=== PATIENT | male | born 1950 | race Caucasian/White ===

== ENCOUNTER → 2021-01-09 18:00 | Outpatient (CLI) | payer MEDICARE, SELFPAY ==
[2021-01-09 18:59] LABS: Basophils # 0.1 K/mm3 (0-0.2); Basophils % 0.6 % (0.1-2.0); Eosinophils # 0.2 K/mm3 (0.0-0.4); Eosinophils % 2.4 % (0.1-12.0); Hematocrit 46.6 % (42.0-52.0); Hemoglobin 15.1 g/dL (14.1-18.0); Lymphocytes # 3.8 K/mm3 (0.7-4.5); Lymphocytes % 37.7 % (10-50); Mean Corpuscular HGB Conc 32.4 g/dL (31.8-35.4); Mean Corpuscular Hemoglobin 29.5 pg (27.0-31.2); Mean Corpuscular Volume 90.9 fl (80-94); Mean Platelet Volume 9.6 fl (7.4-10.4); Monocytes # 0.5 K/mm3 (0.1-1.0); Neutrophils # 5.5 K/mm3 (1.8-7.8); Neutrophils % 54.4 % (37.0-80.0); Platelet Count 269 K/mm3 (142-424); Red Blood Count 5.13 M/mm3 (4.60-6.20); White Blood Count 10.2 K/mm3 (4.8-10.8)
[2021-01-09 19:07] LABS: Alanine Aminotransferase 20 U/L (12-78); Albumin Level 4.3 g/dl (3.5-5.0); Albumin/Globulin Ratio 1.6 (1.1-1.8); Alkaline Phosphatase 67 U/L (38-126); Anion Gap 11.3 mEq/L (5-15); Aspartate Amino Transferase 33 U/L (17-59); Bilirubin,Total 0.8 mg/dl (0.2-1.3); Blood Urea Nitrogen 15 mg/dl (9-20); Calcium 9.5 mg/dl (8.4-10.2); Carbon Dioxide 28 mmol/L (22.0-30.0); Chloride 104 mmol/L (98-107); Chol/HDL Ratio 4.6 (1-3.5); Cholesterol 227 mg/dl (140-200); Estimated Glomerular Filt Rate 74 ml/min (>60); GFR (African American) 89 ML/MIN (>60); Globulin 2.7 g/dL (1.3-3.2); Glucose 94 mg/dl (74-100); HDL Cholesterol 49 mg/dl (40-60); Potassium 4.3 mmoL/L (3.5-5.1); Sodium 139 mmol/L (136-145); Triglycerides 110 mg/dl (30-150); VLDL Cholesterol 22 mg/dL (0-40)
[2021-01-09 19:19] LABS: Direct LDL Cholesterol 149.14 mg/dL (100-129)
[2021-01-09 19:40] LABS: Prostate Specific Ag Screen 4.8 ng/ml (0.0-4.0)
== END ==
PROVIDERS: Visit Provider Family Medicine
DX: I10 Essential (primary) hypertension (principal); S34.109A Unspecified injury to unspecified level of lumbar spinal cord, initial encounter; Z12.5 Encounter for screening for malignant neoplasm of prostate; Z79.899 Other long term (current) drug therapy
CPT/HCPCS: 80053; 80061; 85025; G0103

== ENCOUNTER → 2022-12-10 23:27 | Outpatient (CLI) | payer MEDICARE, SELFPAY ==
[2022-12-10 18:57] LABS: Basophils # 0.1 K/mm3 (0-0.2); Basophils % 0.5 % (0.1-2.0); Eosinophils # 0.3 K/mm3 (0.0-0.4); Eosinophils % 2.9 % (0.1-12.0); Hemoglobin 15.1 g/dL (14.1-18.0); Lymphocytes # 5.2 K/mm3 (0.7-4.5); Lymphocytes % 46.3 % (10-50); Mean Corpuscular HGB Conc 34.3 g/dL (31.8-35.4); Mean Corpuscular Hemoglobin 30.8 pg (27.0-31.2); Mean Corpuscular Volume 89.7 fl (80-94); Mean Platelet Volume 10.5 fl (7.4-10.4); Monocytes # 0.7 K/mm3 (0.1-1.0); Monocytes % 6.5 % (1.7-9.3); Neutrophils # 4.9 K/mm3 (1.8-7.8); Neutrophils % 43.8 % (37.0-80.0); Platelet Count 228 K/mm3 (142-424); Red Blood Count 4.91 M/mm3 (4.60-6.20); Red Cell Distribution Width 13.5 % (11.5-17.5); White Blood Count 11.2 K/mm3 (4.8-10.8)
[2022-12-10 19:22] LABS: Alanine Aminotransferase 23 U/L (12-78); Albumin Level 4.2 g/dl (3.5-5.0); Albumin/Globulin Ratio 1.4 (1.1-1.8); Alkaline Phosphatase 83 U/L (38-126); Anion Gap 11.3 mEq/L (5-15); Aspartate Amino Transferase 32 U/L (17-59); Bilirubin,Total 0.9 mg/dl (0.2-1.3); Blood Urea Nitrogen 13 mg/dl (9-20); Calcium 9.1 mg/dl (8.4-10.2); Carbon Dioxide 29 mmol/L (22.0-30.0); Chloride 104 mmol/L (98-107); Chol/HDL Ratio 3.6 (1-3.5); Cholesterol 132 mg/dl (140-200); Estimated Glomerular Filt Rate 73 ml/min (>60); GFR (African American) 89 ML/MIN (>60); Globulin 2.9 g/dL (1.3-3.2); Glucose 99 mg/dl (74-100); HDL Cholesterol 37 mg/dl (40-60); Potassium 4.3 mmoL/L (3.5-5.1); Sodium 140 mmol/L (136-145); Total Protein,Serum 7.1 g/dl (6.3-8.2); Triglycerides 126 mg/dl (30-150); VLDL Cholesterol 25 mg/dL (0-40)
[2022-12-10 19:33] LABS: Direct LDL Cholesterol 73.43 mg/dL (100-129)
== END ==
PROVIDERS: PCP Family Medicine; Visit Provider Family Medicine
DX: G89.29 Other chronic pain (principal); M54.41 Lumbago with sciatica, right side; I10 Essential (primary) hypertension
CPT/HCPCS: 80053; 80061; 85025

== ENCOUNTER 2023-03-30 19:27 | Outpatient (CLI) | payer MEDICARE, SELFPAY ==
[2023-03-30 19:30] LABS: Vitamin B12 906 pg/mL (239-931)
== END 2023-03-30 23:59 ==
LOC: LAB.DROPOF 19:28
PROVIDERS: PCP Family Medicine; Visit Provider Family Medicine
DX: G62.9 Polyneuropathy, unspecified (principal); D51.9 Vitamin B12 deficiency anemia, unspecified
CPT/HCPCS: 82607

== ENCOUNTER 2023-07-21 09:43 | Outpatient (CLI) | payer MEDICARE, SELFPAY ==
[2023-07-21 19:01] LABS: Prostate Specific Ag Screen 0.3 ng/ml (0.0-4.0)
== END 2023-07-21 23:59 | disposition home or self-care (01) ==
LOC: LAB.DROPOF 07-22 09:45
PROVIDERS: PCP Family Medicine; Visit Provider Family Medicine
DX: Z12.5 Encounter for screening for malignant neoplasm of prostate (principal)
CPT/HCPCS: G0103

== ENCOUNTER 2024-01-13 15:55 | Outpatient (CLI) | payer MEDICARE, SELFPAY ==
[2024-01-13 18:49] LABS: Alanine Aminotransferase 26 U/L (12-78); Albumin Level 4.5 g/dl (3.5-5.0); Alkaline Phosphatase 75 U/L (38-126); Aspartate Amino Transferase 36 U/L (17-59); Bilirubin,Total 0.9 mg/dl (0.2-1.3); Blood Urea Nitrogen 16 mg/dl (9-20); Calcium 9.4 mg/dl (8.4-10.2); Carbon Dioxide 30 mmol/L (22.0-30.0); Chloride 104 mmol/L (98-107); Chol/HDL Ratio 3.2 (1-3.5); Cholesterol 144 mg/dl (140-200); Estimated Glomerular Filt Rate 73 ml/min (>60); GFR (African American) 89 ML/MIN (>60); Globulin 2.3 g/dL (1.3-3.2); Glucose 75 mg/dl (74-100); HDL Cholesterol 45 mg/dl (40-60); Magnesium 2.2 mg/dl (1.6-2.3); Phosphorous 3.4 mg/dl (2.5-4.5); Sodium 142 mmol/L (136-145); Total Protein,Serum 6.8 g/dl (6.3-8.2); Triglycerides 101 mg/dl (30-150); VLDL Cholesterol 20 mg/dL (0-40)
[2024-01-13 18:50] LABS: Basophils # 0.1 K/mm3 (0-0.2); Basophils % 0.5 % (0.1-2.0); Eosinophils # 0.2 K/mm3 (0.0-0.4); Eosinophils % 1.5 % (0.1-12.0); Hematocrit 44.7 % (42.0-52.0); Hemoglobin 15.3 g/dL (14.1-18.0); Lymphocytes # 6.2 K/mm3 (0.7-4.5); Lymphocytes % 52.1 % (10-50); Mean Corpuscular HGB Conc 34.1 g/dL (31.8-35.4); Mean Corpuscular Hemoglobin 30.3 pg (27.0-31.2); Mean Corpuscular Volume 88.8 fl (80-94); Mean Platelet Volume 9.7 fl (7.4-10.4); Monocytes # 0.7 K/mm3 (0.1-1.0); Monocytes % 5.5 % (1.7-9.3); Neutrophils # 4.8 K/mm3 (1.8-7.8); Neutrophils % 40.3 % (37.0-80.0); Platelet Count 237 K/mm3 (142-424); Red Blood Count 5.04 M/mm3 (4.60-6.20); White Blood Count 11.9 K/mm3 (4.8-10.8)
[2024-01-13 18:53] LABS: MANUAL DIFFERENTIAL MANUAL DIFFERENTIAL (MANUAL DIFF)
[2024-01-13 19:01] LABS: Direct LDL Cholesterol 84.68 mg/dL (100-129)
[2024-01-13 19:05] LABS: T4 (Thyroxine) 8.7 ug/dl (5.53-11.0)
[2024-01-13 19:06] LABS: 25-OH Vitamin D, Total 48.4 ng/mL (30-100)
[2024-01-13 19:19] LABS: Thyroid Stimulating Hormone 1.75 uIU/mL (0.465-4.68)
[2024-01-13 20:12] LABS: Eosinophils % 1 % (0-3); Lymphocytes % 55 % (10-50); Monocytes % 8 % (2-9); Neutrophils % 36 % (42-76); Platelet Estimate Normal; RBC Morphology Normal; Total Cells Counted 100
== END 2024-01-13 23:59 | disposition home or self-care (01) ==
LOC: LAB.DROPOF 01-16 10:33
PROVIDERS: PCP Nurse Practitioner Family; Visit Provider Nurse Practitioner Family
DX: M79.10 Myalgia, unspecified site (principal); E55.9 Vitamin D deficiency, unspecified; I10 Essential (primary) hypertension; E78.5 Hyperlipidemia, unspecified
CPT/HCPCS: 80053; 80061; 82306; 83735; 84100; 84436; 84443; 85007; 85025; 85027

== ENCOUNTER 2024-09-27 11:00 | Outpatient (CLI) | payer MEDICARE, SELFPAY ==
[2024-09-27 14:57] LABS: Hematocrit 45.4 % (42.0-52.0); Hemoglobin 15.1 g/dL (14.1-18.0); Immature Granulocytes % 0.3 %; Mean Corpuscular HGB Conc 33.3 g/dL (31.8-35.4); Mean Corpuscular Hemoglobin 30.0 pg (27.0-31.2); Mean Corpuscular Volume 90.1 fl (80-94); Nucleated Red Blood Cells % 0 %; Platelet Count 260 K/mm3 (142-424); Red Blood Count 5.04 M/mm3 (4.60-6.20); Red Cell Distribution Width-SD 39.8 fL; White Blood Count 10.6 K/mm3 (4.8-10.8)
[2024-09-27 15:06] LABS: Alanine Aminotransferase 22 U/L (12-78); Albumin Level 4.2 g/dl (3.5-5.0); Albumin/Globulin Ratio 1.8 (1.1-1.8); Alkaline Phosphatase 79 U/L (38-126); Anion Gap 8.7 mEq/L (5-15); Aspartate Amino Transferase 32 U/L (17-59); Bilirubin,Total 1.0 mg/dl (0.2-1.3); Blood Urea Nitrogen 30 mg/dl (9-20); Calcium 9.7 mg/dl (8.4-10.2); Carbon Dioxide 34 mmol/L (22.0-30.0); Chloride 102 mmol/L (98-107); Cholesterol 162 mg/dl (140-200); Creatinine,Serum 1.60 mg/dl (0.66-1.25); Estimated Glomerular Filt Rate 42 ml/min (>60); GFR (African American) 51 ML/MIN (>60); Globulin 2.3 g/dL (1.3-3.2); Glucose 99 mg/dl (74-100); HDL Cholesterol 37 mg/dl (40-60); Potassium 3.7 mmoL/L (3.5-5.1); Sodium 141 mmol/L (136-145); Total Protein,Serum 6.5 g/dl (6.3-8.2); Triglycerides 160 mg/dl (30-150)
[2024-09-27 15:54] LABS: Hepatitis C Ab Qual. W/ RFX NEGATIVE (Negative)
[2024-09-27 16:28] LABS: RBC Morphology Normal; Total Cells Counted 100
[2024-09-28 07:16] LABS: Hepatitis B Surface Antigen Negative (Negative)
--- OUTSIDE RECORDS SUMMARY | 2024-09-28 13:49 | XMS_ITS | Clinical Summary ---
Author Organization [facility] Address [address] ([place], [place]) [address] [place] [address] Phone Care Team Providers Care Graphics Artist Name Role Phone Kaylie HENSON, Aubrey Unavailable [phone] Conditions or Problems Problem Name Problem Code Onset Date Status Entry Date Provider Comment Standard Description Annotate NECK PAIN 56320316 (SNOMED CT) Active Joycelyn Raza MA Neck pain OVERWEIGHT 865902061 (SNOMED CT) Active Joycelyn Raza MA Overweight LUMBAR DISC HERNIATION 56261944 (SNOMED CT) Active Irene Salvador MD Displacement of lumbar intervertebral disc without myelopathy Medications Medication Instructions Start Date Stop Date Generic Name [facility] Provider CYCLOBENZAPRINE HCL 10 MG TABS 1 PO TID as needed for spasms CYCLOBENZAPRINE HCL 30971454491 Aubrey Lott NP ZANAFLEX 2 MG ORAL CAPSULE 1 PO TID as needed for spams TIZANIDINE HCL 42564484985 Aubrey Lott NP LISINOPRIL TABLET Non-Simpson LISINOPRIL TABS 44424344914 Joycelyn Raza MA EQL FISH OIL 1000 MG CAPS 1 daily Non-Simpson 2/11 OMEGA-3 FATTY ACIDS 52989316040 Joycelyn Raza MA ADVIL 200 MG TABS prn Non-Simpson 2/11 IBUPROFEN 70954745419 Joycelyn Raza MA ADVIL 200 MG TABS prn Non-Simpson 0 2/11 IBUPROFEN 52796166696 Irene Salvador MD EQL FISH OIL 1000 MG CAPS 1 daily Non-Simpson 2/11 OMEGA-3 FATTY ACIDS 09804400986 Irene Salvador MD AMLODIPINE BESYLATE 10 MG TABS 1 daily Non-Mas AMLODIPINE BESYLATE [id number] Irene Salvador MD Medications Administered No information available. Allergies, Adverse Reactions, Alerts Observed no known allergies at Results No information available. Plan of Care Type Date Detail Pending order MRI Cervical wit hout contrast Pending order MRI Cervical wit hout contrast Pending order MANJIT -- x 1 injec tion then follow back to Ordering MD Procedures Code Procedure Name Date Entry Date [id number] Flu Shot Previously Received [id number] Pneumonia Vaccine Previously Received 20/04/24 [id number] Medications Documented [id number] Flu Shot Previously Received [id number] Pneumonia Vaccine Previously Received 20/04/10 [id number] Medications Documented [id number] Flu Shot Previously Received G8427 Medication Reconcili ation Completed CPT-G8427 G8730 Pain Assessment posi tive with follow up plan G8417 BMI above normal, f/u plan documented 201 08/09/29 1036F No tobacco use currently 201 08/09/29 [id number] No pneumococcal vaccine received; no reas on G8483 No flu shot received; allergy etc. 1123F ACP/POA documented 0 [id number] Pneumonia Vaccine Previously Received 12/02/30 [id number] Medications Documented [id number] Medications Documented 1123F ACP/POA documented 8 G8483 No flu shot received; allergy etc. 03/27 [id number] No pneumococcal vaccine received; no reas on 1036F No tobacco use currently 201 08/09/27 G8417 BMI above normal, f/u plan documented 201 08/09/27 G8730 Pain Assessment posi tive with follow up plan G8427 Medication Reconcili ation Completed CPT-G8427 Vital Signs Date Name Value Unit Description BMI (Body Mass Index) 30.41 kg/m2 Bod y Mass Index (Ratio) Body Temperature 97.5 [degF] temperat ure E&M Height 68 [in_us] height E&M Weight Measured 200 [lb_av] weight E& M Weight Measured 200 [lb_av] weight E& M BP Diastolic 84 mm[Hg] blood pressu re, diastolic BP Systolic 154 mm[Hg] blood pressur e, systolic Heart Rate 65 /min pulse rate Immunizations No information available. Advance Directives No information available.
--- OUTSIDE RECORDS SUMMARY | 2024-09-28 13:50 | XMS_ITS | Encounter Summary ---
Author Organization [place] [address] Care Team Providers Care School Secretary Name Role Phone Kendall Griffiths MD Primary Care Provider Unav ailable Encounter Details Date Type Department Care Team (Late st Contact Info) Description 01/15/2022 Lab Requisition [facility] [place] [address] Melissa Wheeler PA-C [address] [place] [address] [address] [place] [address] Calculus of kidney Social History Tobacco Use Types Packs/Day Years Used Date Smoking Tobacco: Never Smokeless Tobacco: Never Alcohol Use Standard Drinks/Week Comments No 0 (1 standard drink = 0.6 oz pur e alcohol) Sex and Gender Information Value Date Recorded Sex Assigned at Not on file Legal Sex Male 9:53 PM EDT Gender Identity Not on file Sexual Orientation Not on file COVID-19 Exposure Response Date Recorded In the last 10 days, have yo u been in contact with someone who was confirmed or suspected to have Coronavirus/COVID-19? No / Unsure 12/29/2021 6:41 AM EDT documented as of this encounter Plan of Treatment Not on file documented as of this encounter Procedures Procedure Name Priority Date/Time Associated Diagnosis Comments CALCULI (STONE) ANALYSIS - REF LAB Routine 01/15/2022 12:45 PM EST Calculus of kidney documented in this encounter Results * CALCULI (STONE) ANALYSIS - REF LAB (01/15/2022 12:45 PM EST) Calculi Comp See Note 01/21/2022 10:53 AM EST [facility] Comment: Calculi composed primarily of: 20% calcium oxalate monohydrate, 10% calcium oxalate dihydrate, and 70% calcium phosphate (hydroxy- and carbonate- apatite). INTERPRETIVE INFORMATION: Calculi (Stone) analysis Calculi are the products of physiological processes that yield crystalline compounds in a matrix of biological compounds and blood. Matrix components are not reported. The clinically significant crystalline components identified in calculi specimens are reported. Gross description may not be consistent with composition determined by FTIR analysis. Performed By: [facility] [address] [place] [address] Soliciting Freight Agent: Michael Santana MD, PhD Calculi Mass 145 mg 01/21/2022 10:53 AM EST [facility] Calculi Desc See Note 01/21/2022 10:53 AM EST [facility] Comment: Specimen consists of numerous orange and fong calculi fragments. The total weight is 145 mg. Calculus URINE SPECIMEN COLLECTION / Unknown 01/15/2022 12:45 PM EST 01/15/2022 8:53 PM EST us Melissa Wheeler PA-C MICROBIOLOGY - GENERAL O RDERABLES Final Result [facility] [address] [place] [address] documented in this encounter Visit Diagnoses Diagnosis Calculus of kidney documented in this encounter Care Teams School Secretary Relationship Specialty Start Date End Date Kendall Griffiths MD PCP - General 08/11/09 documented as of this encounter
--- OUTSIDE RECORDS SUMMARY | 2024-09-28 13:50 | XMS_ITS | Clinical Summary ---
Author Organization [facility] Address [address] [place] [address] Phone Care Team Providers Care Link Trainer Teacher Name Role Phone Kendlal Griffiths MD Primary Care Provider Unav ailable Allergies Active Allergy Reactions Criticality Noted Date Comments Mold Extracts 11/09/2013 Ragweed 11/09/2013 Medications AMLODIPINE BESYLATE (AMLODIPINE ORAL) Take 10 mg by mouth daily. Active lisinopriL (PRINIVIL;ZESTRI L) 10 mg Oral Tablet Take by mouth daily. Active atorvastatin (LIPITOR) 20 mg Oral Tablet Take by mouth daily. Active multivitamin, stress formula (ALLBEE VIT WITH C & B COMPLEX) Oral Tablet Take 1 Tablet by mouth daily. Active magnesium chloride (MAG DELAY) 64 mg Oral Tablet, Delayed Release (E.C.) Take 250 mg by mouth daily. Active cycloSPORINE (RESTASIS) 0.05 % Opht Dropperette Place into both eyes every 12 hours. Active POTASSIUM ALUM, BULK, MISC by Misc.(Non-Dr ug; Combo Route) route. Active benzocaine (ORAJEL) 10 % MM Gel Take by mouth 3 times daily as needed for Pain. To urinary opening if tender with catheter. 12/29/2021 Active acetaminophen (TYLENOL) 500 mg Oral Tablet Take 1 Tablet by mouth every 4 hours as needed for Pain. 2 12/29/2021 Active Ibuprofen 200 mg Oral Capsule Take 400 mg by mouth every 6 hours as needed for Pain. 120 Capsule 12/29/2021 Active Active Problems Problem Noted Date Diagnosed Date Enlarged prostate with urinary obstruction 10/27 Overview (10/27/2021): Added automatically from request for surgery [id number] Immunizations Immunization Administration Dates Next Due Tdap 09/10/2018 Surgical History Surgery Date Site/Laterality Comments PROSTATE SURGERY 02/06/14 prostate biopsy PROSTATE SURGERY 12/29/2021 N/A cystoscopy holmium laser enucleation of the prostate ; Surgeon: Rodri Fitzgerald MD; Location: [facility]; Service: Urology Medical History Medical History Date Comments Hypertension Arthritis right hand and r ight neck Prostate disorder prostate biops y Hyperlipidemia Cancer (HCC) skin cancer Heartburn Family History Medical History Relation Name Comments Diabetes Brother High Blood Pressure Brother Diabetes Father High Blood Pressure Father Diabetes Mother High Blood Pressure Mother Anesth Problems Neg Hx Relation Name Status Comments Brother Alive Father Mother Social History Tobacco Use Types Packs/Day Years Used Date Smoking Tobacco: Never Smokeless Tobacco: Never Alcohol Use Standard Drinks/Week Comments No 0 (1 standard drink = 0.6 oz pur e alcohol) Sex and Gender Information Value Date Recorded Sex Assigned at Not on file Legal Sex Male 9:53 PM EDT Gender Identity Not on file Sexual Orientation Not on file Obstetrics History Last Filed Vital Signs Vital Sign Reading Time Taken Comments Blood Pressure 160/97 05/07/2022 4:22 PM EST Pulse 63 05/07/2022 4:27 PM EST Temperature 36.8 C (98.3 F) 05/07/2022 4:27 PM EST Respiratory Rate 14 05/07/2022 4:27 PM EST Oxygen Saturation 98% 05/07/2022 4:23 PM EST Inhaled Oxygen Concentration - - Weight 91.2 kg (201 lb) 05/07/2022 12:11 PM EST Height 172.7 cm (5' 8 ) 12/29/2021 6:41 AM EDT Body Mass Index 30.56 12/29/2021 6:41 AM EDT Plan of Treatment Health Maintenance Due Date Last Done Comments Wellness Exam Medicare 1953 Hepatitis C Screening 02/29/1968 Cologuard 1995 Colon Cancer Screening 1995 Colonoscopy 1995 FIT 1995 Sigmoidoscopy 1995 Virtual Colonography 1995 Pneumococcal Vaccine 50+ (1 of 1 - PCV) 02/29/2000 Zoster (1 of 2) 02/29/2000 COVID-19 Vaccine (1 - 2023-2 5 season) 2023 Influenza Vaccine (#1) 2024 , 12/10/2022 DTaP/TDaP/Td (2 - Td or Tdap) 09/10/2028 09/10/2018 Hepatitis B Vaccine Aged Out No longe r eligible based on patient's age to complete this topic Meningococcal B Vaccine Aged Out No l onger eligible based on patient's age to complete this topic Insurance [employer] MEDICARE PPO [place] [employer] MEDICARE PPO MR [place] [id number] [employer] MEDICARE PPO MR Advance Directives For more information, please contact: [phone] * Full Code (Latest Code Status on File) Date Activated Date Inactivated Comments 12/29/2021 6:11 AM 12/29/2021 3:39 PM * Full Code Date Activated Date Inactivated Comments 11/09/2013 1:48 PM 11/12/2013 2:27 PM Care Teams Link Trainer Teacher Relationship Specialty Start Date End Date Kendall Griffiths MD PCP - General 08/11/09
== END 2024-09-27 23:59 | disposition home or self-care (01) ==
LOC: LAB.DROPOF 09-28 13:48
PROVIDERS: PCP Family Medicine; Visit Provider Family Medicine
DX: G62.9 Polyneuropathy, unspecified (principal); I10 Essential (primary) hypertension; M54.31 Sciatica, right side; Z12.5 Encounter for screening for malignant neoplasm of prostate; Z11.59 Encounter for screening for other viral diseases
CPT/HCPCS: 80053; 80061; 85007; 85025; 85027; 86803; 87340; 87389; G0103